=== PATIENT | female | born 1955 | race African-American/Black ===

== ENCOUNTER → 2016-11-25 | Outpatient (CLI) | payer OTHER ==
[~2016-11-25] MED LIST: AMLODIPINE BESYL5 MG PO; AUGMENTIN PO; NEURONTIN PO; PERIACTIN4 MG PO
--- NOTE | ~2016-11-25 | CR58 ---
[facility] A Service of [facility] & [facility] RADIOLOGY TEXT RESULTS PATIENT: DINO RICHARD LOCATION: [facility] : 57 UNIT #: [id number] AGE: [address]: Tre Nunez MD SEX: F ORDER DR: [id number] [facility] [address] [place], [place] [address] [id number] O MR#: [id number] Acc #: [id number] NAME: DINO RICHARD : 1955 SEX: F STUDY DATE/TIME: 11/25/2016 14:39 UNIT: [facility] ROOM: STUDY DESCRIPTION: CR Cervical Spine 2 or 3 Views Attending Physician: Tre Nunez M.D. Referring Physician: Tre Nunez M.D. Ordering Physician: Tre Nunez M.D. Primary Care Physician: Phil Sims M.D. MEDICAL IMAGING REPORT This report is preliminary unless electronic signature is present EXAM Cervical spine, 3 views, 11/25/16. CLINICAL HISTORY Posterior neck pain for about 10 days. COMPARISON None. FINDINGS There is mid to lower cervical degenerative change with discogenic change and slightly retrolisthesis at C5-6. However, alignment is otherwise normal and no acute abnormality is seen. Incidental note made of atherosclerotic vascular calcifications at the cervical carotid bifurcation. Dictated by... Angel Campos M.D. THIS IS AN ELECTRONICALLY VERIFIED REPORT Angel Campos M.D. at 11/26/2016 3:51 PM TEV/pc TD: 11/26/2016 11:42 JOB #: [id number] MEDICAL IMAGING REPORT Page 1 of 1 COPY
== END | disposition home or self-care (01) ==
LOC: CRAD 13:55
DX: M54.2 Cervicalgia (principal)
CPT/HCPCS: 72040